=== PATIENT | female | born 1990 | race Caucasian/White ===

== ENCOUNTER 2016-03-03 16:41 | Emergency (ER) | payer OTHER ==
--- NOTE | 2016-03-03 20:29 | ED ORDER SUMMARY ---
..... Patient: DANIELLE CERVANTES OrderSheet [facility] VisitID: [id number] [place] [address] 25y, F Registration Date/Time: 03/03/2016 ORDER SHEET Weight: 61.2 kg Allergies: No Known Drug Allergy GENERAL ORDERS: CBC w Diff Urgent (17:03/03/2016 Rajeev Montenegro) (Ack 17:32 LTapper) (17:46 LTapper) CMP Urgent (:03/03/2016 Rajeev Montenegro) (Ack 17:32 LTapper) (17:46 LTapper) UA-Culture if indicated Urgent (:03/03/2016 Rajeev Montenegro) (Ack 17:32 LTapper) (17:46 LTapper) MEDICATION ORDERS: IV FLUIDS: IV NS : initial bolus none -, then 1000 mL/hr for X1 (NOW) (:03/03/2016 Rajeev Montenegro) (17:37 [facility]) ORDER SHEET NOTES: [Electronically signed by Husam Lopez Dr. (19:03 03/03/2016)] [Electronically signed by Saranya Stevens (20:51 03/03/2016)] [Electronically locked/signed by Saranya Stevens (20:51 03/03/2016)]
--- NOTE | 2016-03-03 20:29 | ED NURSING NOTES ---
Clinical Report - Nurses [facility] [address] [place] [address] 03/03/2016 16:43 Patient: DANIELLE CERVANTES TRIAGE Triage time 1650. Acuity: LEVEL 3. Chief Complaint: NEAR-SYNCOPE. Alert. No acute distress. --17:03 Saranya Stevens 16:59 03/03/16. BP: 112/71. HR: 72. RR: 20. O2 saturation: 100%. Temp: 98.4 F. Pain level now 0/10. --17:03 Saranya Stevens. Weight: 61.2 kg. Height/Length: 62 inches. BMI: 24.7. --16:57 Saranya Stevens. Medications Vitamins Oral. --17: Saranya Stevens. Allergies No Known Drug Allergy. --17:01 Saranya Stevens. History Arrived by private vehicle. Historian: patient. Accompanied by daughter. This started today. ( Pt is and today has been having contractions lasting 5 minutes, every hour, and then at 1400 felt like she was going to pass out, was able to s it down). PAST MEDICAL HX: Currently : EDC: July 28. SOCIAL HX: Never smoker. --17:03 Saranya Stevens. PROBLEMS: Murmur, Heart. --17:01 Saranya Stevens. Interventions To treatment room. --17:03 Saranya Stevens. PHYSICAL ASSESSMENT Ambulatory to room. Patient gowned. GENERAL / NEURO / PSYCH: Oriented X 4. Appears in no acute distress. Alert. Speech within normal limits. HEENT: No facial asymmetry noted. Pupils equal, round and reactive to light. RESPIRATORY: Breath sounds within normal limits. Respirations not labored. CVS: Normal sinus rhythm noted. Capillary refill less than 2 seconds. GI / : Abdomen soft and nontender. SKIN: Skin is warm and dry. --17:03 Saranya Stevens ( heart tones left under umbilicus at 140- per doppler). --17:11 Saranya Stevens. NURSING PROGRESS NOTES 17:36 03/03/2016 Site #1 started via IV in the right antecubital space with an 22g angiocath, with aseptic technique and good blood return; one attempt. Blood drawn: rainbow set. Labeled in the presence of the patient and sent to the lab. Saline lock flushed with 10 mL saline. --17:36 Saranya Stevens 17:37 03/03/2016 Started bag #1 1000 mL IV Fluids IV NS (Saline); bolus of 1000 mL wide open via site #1. Allergies verified and confirmed 5 rights. IV patency established. IV site checked: no pain, redness, or swelling. IV flushed thoroughly pre- and post-medication administration. --17:37 Saranya Stevens The patient reports no complaints and she is calm and resting quietly. Overall patient status is the same- she states feels better. --18:47 Saranya Stevens 18:46 03/03/16. BP: 98/51. HR: 65. RR: 16. O2 saturation: 100%. Pain level now 0/10. --18:47 Saranya Stevens. DISPOSITION / DISCHARGE 20:51 03/03/2016 Site #1 removed upon discharge. Pressure dressing applied. --20:51 Saranya Stevens 20:51 03/03/2016 IV Fluids IV NS Discontinued: bag #1 completed upon discharge. Total amount infused: 1000 mL. IV patency established. IV site checked: no pain, redness, or swelling. IV flushed thoroughly. --20:51 Saranya Stevens Departure time: 2034. Condition at departure: improved and stable. No learning barriers present. Discharge instructions provided and reviewed with the patient and spouse. Reviewed medication(s). Patient and spouse verbalized understanding. Written instructions provided in Danish. The patient was discharged by the physician. She was discharged home and accompanied by spouse. She left the Emergency Department ambulatory and via private vehicle. Spouse driving. --20:51 Saranya Stevens 20:50 03/03/16. BP: 106/53. HR: 78. RR: 16. O2 saturation: 98%. --20:51 Saranya Stevens. Locked/Released at 03/03/2016 20:51 by Saranya Stevens,
--- NOTE | 2016-03-03 20:29 | ED CLINICAL REPORT ---
Clinical Report - Physicians/Mid Levels [facility] [address] [place] [address] 03/03/2016 16:43 Patient: DANIELLE CERVANTES Time Seen: 16:49; initial patient contact. Arrived- By private vehicle. Historian- patient. HISTORY OF PRESENT ILLNESS The patient has recovered. Chief Complaint: NEAR-SYNCOPE. This occurred today. Event was not witnessed. At time of event, she was standing. The patient felt faint. No loss of consciousness, seizure activity or incontinence. Did not collapse. The patient had preceding symptoms of light-headedness, dim vision and warmth. No preceding symptoms of nausea, chest pain or abdominal pain. Currently she has no symptoms. No injuries noted. Similar symptoms previously: None. Recent medical care: Not recently seen/assessed. REVIEW OF SYSTEMS No headache, weakness, abdominal pain or numbness. She has had dizziness. All systems otherwise negative, except as recorded above. PAST HISTORY Lung disease. ( Heart Murmur(benign w/ 2 nl echos) Currently : EDC: July 28.). Surgeries: No history of previous surgery. Additional Surgeries: no known surgeries. Medications: Vitamins Oral. Allergies: No Known Drug Allergy. SOCIAL HISTORY Never smoker. No alcohol use or drug use. ADDITIONAL NOTES The nursing notes have been reviewed with agreement regarding the chief complaint, PMH and patient medications and allergies. PHYSICAL EXAM Vital Signs: 03/03/2016 16:59 BP: 112/71. HR: 72. RR: 20. O2 saturation: 100%. Temp: 98.4 F. Have been reviewed as normal. Appearance: Alert. No acute distress. ENT: Normal ENT inspection. Moist mucous membranes. CVS: Normal heart rate and rhythm. 2/6 brief systolic murmur located at the apex. Respiratory: No respiratory distress. Breath sounds normal. Abdomen: Soft and nontender. Nontender gravid uterus palpable to umbilicus (No contractions noted on multiple exams.). Size consistent with dates. Normal heart tones. movement noted. No organomegaly. Skin: Skin warm and dry. Normal skin color. No rash. Extremities: No calf tenderness. No lower extremity edema. Neuro: Alert. Oriented X 3. Mood/affect normal. Speech normal. LABS, X-RAYS, AND EKG Laboratory Tests: UA-Culture if indicated: (YECENIA: 03/03/2016 17:30) ( MsgRcvd 03/03/2016 17:51) Final results Test Result Flag Units (Reference) URINE COLOR COLORLESS URINE APPEARANCE CLEAR URINE GLUCOSE NEGATIVE (NEGATIVE) URINE BILIRUBIN NEGATIVE (NEGATIVE) URINE KETONE NEGATIVE (NEGATIVE) URINE SPECIFIC GRAVITY 1.015 (1.010-1.030) URINE PH 7.0 (5.0-8.0) URINE PROTEIN NEGATIVE (NEGATIVE) URINE UROBILINOGEN 0.2 EU/dL (0.2-1.0) URINE NITRITE NEGATIVE (NEGATIVE) URINE BLOOD NEGATIVE (NEGATIVE) URINE LEUK ESTERASE NEGATIVE (NEGATIVE) URINE RBC NONE SEEN rbc/hpf (0-1) URINE WBC NONE SEEN wbc/hpf (0-1) URINE EPITHELIAL CELLS NONE SEEN EPI/hpf (0-5) URINE BACTERIA NONE SEEN (NONE SEEN) URINE COMMENT CULT NOT INDICATED URINE CULTURES ARE SET-UP BASED ON THE FOLLOWING CRITERIA:POSITIVE NITRITEPOSITIVE LEUKOCYTE ESTERASEGREATER THAN 10 WHITE BLOOD CELLSMODERATE (2+) OR GREATER BACTERIA CBC w Diff: (YECENIA: 03/03/2016 17:30) ( MsgRcvd 03/03/2016 17:50) Final results Test Result Flag Units (Reference) WHITE BLOOD COUNT 8.9 K/uL (4.5-11.5) RED BLOOD COUNT 3.37 L M/uL (4.00-5.20) HEMOGLOBIN 10.8 L gm/dL (12.0-16.0) HEMATOCRIT 32.4 L % (36.0-46.0) MEAN CELL VOLUME 96 fL (80-100) MEAN CORPUSCULAR HGB 32 pg (26-34) MEAN CORPUSCULAR HGB CONC 33 g/dL (31-37) RED CELL DISTRIBUTION WIDTH 12.8 % (11.6-14.8) PLATELET COUNT 257 K/uL (150-400) NEUTROPHIL % 73.5 % (50-75) LYMPH % 17.4 L % (25-40) MONO % 7.6 % (3-14) EOSINOPHIL % 1.2 % (0-4) BASOPHIL % 0.3 % (0-2) CMP: (YECENIA: 03/03/2016 17:30) ( MsgRcvd 03/03/2016 17:56) Final results Test Result Flag Units (Reference) GLUCOSE 77 mg/dL (70-110) BUN 8 mg/dL (7-18) CREATININE 0.6 mg/dL (0.6-1.3) Estimated GFR >60 mL/min Estimated GFR- >60 mL/min Note: Persistent reduction over 3 months in eGFR<60 mL/min/1.73 m2 defines CKD. Patients with eGFR values>=60 mL/min/1.73 m2 may also have CKD if evidence ofpersistent proteinuria. Additional information may be foundat www.kidney.org. SODIUM 138 mmol/L (136-145) POTASSIUM 3.5 mmol/L (3.5-5.1) CHLORIDE 103 mmol/L (98-107) CARBON DIOXIDE 28 mmol/L (21-32) CALCIUM 8.3 L mg/dL (8.5-10.1) TOTAL PROTEIN 7.2 g/dL (6.4-8.2) ALBUMIN 3.1 L g/dL (3.3-5.0) BILIRUBIN, TOTAL 0.4 mg/dL (0.0-1.0) ALKALINE PHOSPHATASE 44 L U/L (46-116) AST (SGOT) 32 U/L (15-37) ALT (SGPT) 53 U/L (12-78) . CLINICAL IMPRESSION Vasovagal syncope. An EKG was not performed because a benign, noncardiac etiology was evident without doing an EKG. Second trimester intrauterine . Mild chronic anemia. INSTRUCTIONS Drink plenty of fluids. Your Current Medications: CONTINUE TAKING THE FOLLOWING MEDICATIONS: Vitamins Oral. Prescription Medications: vitamins Niferex-PN Forte Tablets: Take 1 orally every day. Dispense thirty (30). No refils. Substitution is permissible. Follow-up: Screening today revealed the patient's blood pressure to be in the normal range. Follow-up with: Paul Fallon MD, [facility], , [facility], [address] [place] [address] Follow up in about three days. Call for an appointment. (Electronically signed by Husam Lopez Dr. 03/03/2016 19:03)
--- NOTE | 2016-03-03 20:29 | ED ORDER SUMMARY ---
..... Patient: DANIELLE CERVANTES OrderSheet [facility] VisitID: [id number] [place] [address] 25y, F Registration Date/Time: 03/03/2016 ORDER SHEET Weight: 61.2 kg Allergies: No Known Drug Allergy GENERAL ORDERS: CBC w Diff Urgent (17:03/03/2016 Rajeev Montenegro) (Ack 17:32 LTapper) (17:46 LTapper) CMP Urgent (:03/03/2016 Rajeev Montenegro) (Ack 17:32 LTapper) (17:46 LTapper) UA-Culture if indicated Urgent (:03/03/2016 Rajeev Montenegro) (Ack 17:32 LTapper) (17:46 LTapper) MEDICATION ORDERS: IV FLUIDS: IV NS : initial bolus none -, then 1000 mL/hr for X1 (NOW) (:03/03/2016 Rajeev Montenegro) (17:37 [facility]) ORDER SHEET NOTES: [Electronically signed by Husam Lopez Dr. (19:03 03/03/2016)] [Electronically signed by Saranya Stevens (20:51 03/03/2016)] [Electronically locked/signed by Saranya Stevens (20:51 03/03/2016)]
--- NOTE | 2016-03-03 20:52 | ED MAR SUMMARY ---
..... Medication Administration Record [facility] [address] [place] [address] Patient: DANIELLE CERVANTES Visit ID: [id number] 25y, F Weight: 61.2 kg Height/Length: 62 in BMI: 24.7 ALLERGIES: No Known Drug Allergy Start 17:37 03/03/2016 Saranya Stevens,, Stop 20:51 03/03/2016 Saranya Stevens, Medication Administered: IV NS (SALINE), Dose: IV Fluids, Bolus: 1000 mL wide open, Dispensed: 1000 mL bag, Site: #1 right AC. Medication Ordered: IV NS : initial bolus none -, then 1000 mL/hr for X1 (NOW).
--- NOTE | 2016-03-03 20:52 | ED MED RECONCILIATION SUMMARY ---
Patient: DANIELLE CERVANTES Medication Reconciliation Report [facility] VisitID: [id number] [address] [place] [address] 25y, F Registration Date/Time: 03/03/2016 Weight: 61.2 kg Height/Length: 62 in. BMI: 24.7 ALLERGIES: No Known Drug Allergy The patient's Home Medications are listed below: CONTINUE TAKING THE FOLLOWING MEDICATIONS: Vitamins Oral The source(s) of the original Home Medication information: Not obtained. The following Medications were given to the patient in the Emergency Department: IV NS IV Fluids bolus 1000 mL wide open, administered: 03/03/2016 5:37:00 PM The following Medications were prescribed to the patient: vitamins Niferex-PN Forte Tablets: Take 1 orally every day. Dispense thirty (30). No refils. Substitution is permissible. -- Husam Lopez Dr.
--- NOTE | 2016-03-03 20:52 | ED MAR SUMMARY ---
..... Medication Administration Record [facility] [address] [place] [address] Patient: DANIELLE CERVANTES Visit ID: [id number] 25y, F Weight: 61.2 kg Height/Length: 62 in BMI: 24.7 ALLERGIES: No Known Drug Allergy Start 17:37 03/03/2016 Saranya Stevens,, Stop 20:51 03/03/2016 Saranya Stevens, Medication Administered: IV NS (SALINE), Dose: IV Fluids, Bolus: 1000 mL wide open, Dispensed: 1000 mL bag, Site: #1 right AC. Medication Ordered: IV NS : initial bolus none -, then 1000 mL/hr for X1 (NOW).
--- NOTE | 2016-03-03 20:52 | ED DISCHARGE INSTRUCTIONS ---
Patient: DANIELLE CERVANTES General Instructions [facility] VisitID: [id number] [place] [address] 25y, F Registration Date/Time: 03/03/2016 Vasovagal syncope. An EKG was not performed because a benign, noncardiac etiology was evident without doing an EKG. Second trimester intrauterine . Mild chronic anemia. INSTRUCTIONS Drink plenty of fluids. Your Current Medications: CONTINUE TAKING THE FOLLOWING MEDICATIONS: Vitamins Oral. Prescription Medications: vitamins Niferex-PN Forte Tablets: Take 1 orally every day. Dispense thirty (30). No refils. Substitution is permissible. Follow-up: Screening today revealed the patient's blood pressure to be in the normal range. Follow-up with: Paul Fallon MD, [facility], , [facility], [address] [place] [address] Follow up in about three days. Call for an appointment. ADDITIONAL INFORMATION Fainting:Vagal Reaction Fainting (syncope) is a temporary loss of consciousness ("passing out"). It occurs when blood flow to the brain is reduced. Your doctor believes that your episode was due to a vagal reaction. This condition is not a sign of serious disease. A vagal reaction is a reflex response that causes the pulse to slow down or the blood vessels to dilate. This causes the blood pressure to fall, reducing the blood flow to the brain if you are standing or sitting. That results in dizziness, near-fainting or fainting. Lying down usually stops the reaction within 60 seconds. This reflex response can occur during sudden fear, severe pain, emotional stress, overexertion, overheating, hunger, nausea or vomiting, prolonged standing or standing up after sitting or lying for a long time. Home Care: 1) Rest today and resume your normal activities as soon as you are feeling back to normal. 2) If you become light-headed or dizzy, lie down immediately or sit with your head lowered between your knees. Follow Up with your doctor as instructed. Get Prompt Medical Attention if any of the following occur: -- Another fainting spell occurs, which is not explained by the common causes listed above -- Chest, arm, neck, jaw, back or abdominal pain -- Shortness of breath -- Severe headache or seizure -- Blood in vomit, stools (black or red color) -- Unexpected vaginal bleeding -- Palpitations (very rapid or very slow or irregular heart beat) -- Signs of stroke: Weakness of an arm or leg or one side of the face Difficulty with speech or vision Extreme drowsiness, confusion, dizziness or fainting Anemia [Type Not Specified, Adult] Red blood cells carry oxygen to the tissues of the body. Anemia is a condition where the size or number of red blood cells in the body is reduced. Iron is needed to make red blood cells. The most common cause of anemia is iron deficiency. This may be due to: i) Blood loss (heavy menstrual periods or bleeding from the stomach or intestines); or, ii) Not eating enough iron-containing foods. Other causes of anemia include certain vitamin deficiencies, chronic kidney disease or certain other chronic illnesses. Anemia causes a feeling of being tired and run down. When anemia becomes severe, the skin becomes pale and there is shortness of breath with exertion. Headaches, dizziness, leg cramps with exertion, drowsiness and fatigue are other common symptoms. Home Care: If you are having symptoms of anemia listed above: -- Do not overexert yourself. -- Talk to your doctor before flying on an airplane or traveling to high altitudes. Follow Up with your doctor as advised by our staff. Additional blood testing may be required to determine the exact cause of your anemia. If testing was done on this visit, it may take several days to get all of the results. You may call this facility or follow up with your own doctor to get the results. Get Prompt Medical Attention if any of the following occur: -- Shortness of breath or chest pain -- Worsening of dizziness, fainting -- Vomiting blood or passing red or black-colored stool Your exam today shows that you are . During , it is normal to develop tender swollen breasts, frequent urination and mild vaginal discharge. During the first three months, nausea is common. Guidelines For A Healthy : To ensure that your baby is born healthy there are certain things that you can do: When you feel tired, you should REST. This is especially true in the later months of . Your body needs more FLUIDS than you may be used to: You should drink 8-10 glasses of juice, milk or water. Eat well-balanced MEALS at regular intervals to supply your body with enough protein. You can expect a total weight gain of about 30 pounds during the . Do not try to diet or lose weight while you are . Because of the extra nutritional needs during , take one VITAMIN daily. Do not take any other MEDICINE during your (prescribed or [id number]) unless your doctor specifically recommends this. Many drugs can have harmful effects on the growing baby. If NAUSEA or VOMITING become a problem, avoid greasy and fried foods. Eat several smaller meals throughout the day rather than three large meals. If you SMOKE, you must stop. The nicotine you breathe in goes right to the baby. Stay away from ALCOHOL, even in moderate amounts. Daily drinking will harm your baby and can cause permanent brain damage. RECREATIONAL DRUGS are harmful, especially cocaine, crack, and heroin. Marijuana should also be avoided. If you were using recreational drugs or prescribed medicine when you found out that you were , talk to your doctor about possible effects on the fetus. Follow Up: Call to arrange for care. This can be provided by your family doctor, an wreath and garland maker hand ( specialist) or a primary care clinic. Get Prompt Medical Attention if any of the following occur: Vaginal bleeding Moderate or severe abdominal or back pain Excessive vomiting, unable to keep any fluids down for six hours Burning with urination Headache, dizziness or rapid weight gain You have been given the following additional information: Syncope, Vasovagal Anemia, Type Not Specified (Adult) , New Dx (Electronically signed by Husam Lopez Dr. 03/03/2016 19:03)
--- NOTE | 2016-03-03 20:52 | ED MED RECONCILIATION SUMMARY ---
Patient: DANIELLE CERVANTES Medication Reconciliation Report [facility] VisitID: [id number] [address] [place] [address] 25y, F Registration Date/Time: 03/03/2016 Weight: 61.2 kg Height/Length: 62 in. BMI: 24.7 ALLERGIES: No Known Drug Allergy The patient's Home Medications are listed below: CONTINUE TAKING THE FOLLOWING MEDICATIONS: Vitamins Oral The source(s) of the original Home Medication information: Not obtained. The following Medications were given to the patient in the Emergency Department: IV NS IV Fluids bolus 1000 mL wide open, administered: 03/03/2016 5:37:00 PM The following Medications were prescribed to the patient: vitamins Niferex-PN Forte Tablets: Take 1 orally every day. Dispense thirty (30). No refils. Substitution is permissible. -- Husam Lopez Dr.
--- NOTE | 2016-03-03 20:52 | ED DISCHARGE INSTRUCTIONS ---
Patient: DANIELLE CERVANTES General Instructions [facility] VisitID: [id number] [place] [address] 25y, F Registration Date/Time: 03/03/2016 Vasovagal syncope. An EKG was not performed because a benign, noncardiac etiology was evident without doing an EKG. Second trimester intrauterine . Mild chronic anemia. INSTRUCTIONS Drink plenty of fluids. Your Current Medications: CONTINUE TAKING THE FOLLOWING MEDICATIONS: Vitamins Oral. Prescription Medications: vitamins Niferex-PN Forte Tablets: Take 1 orally every day. Dispense thirty (30). No refils. Substitution is permissible. Follow-up: Screening today revealed the patient's blood pressure to be in the normal range. Follow-up with: Paul Fallon MD, [facility], , [facility], [address] [place] [address] Follow up in about three days. Call for an appointment. ADDITIONAL INFORMATION Fainting:Vagal Reaction Fainting (syncope) is a temporary loss of consciousness ("passing out"). It occurs when blood flow to the brain is reduced. Your doctor believes that your episode was due to a vagal reaction. This condition is not a sign of serious disease. A vagal reaction is a reflex response that causes the pulse to slow down or the blood vessels to dilate. This causes the blood pressure to fall, reducing the blood flow to the brain if you are standing or sitting. That results in dizziness, near-fainting or fainting. Lying down usually stops the reaction within 60 seconds. This reflex response can occur during sudden fear, severe pain, emotional stress, overexertion, overheating, hunger, nausea or vomiting, prolonged standing or standing up after sitting or lying for a long time. Home Care: 1) Rest today and resume your normal activities as soon as you are feeling back to normal. 2) If you become light-headed or dizzy, lie down immediately or sit with your head lowered between your knees. Follow Up with your doctor as instructed. Get Prompt Medical Attention if any of the following occur: -- Another fainting spell occurs, which is not explained by the common causes listed above -- Chest, arm, neck, jaw, back or abdominal pain -- Shortness of breath -- Severe headache or seizure -- Blood in vomit, stools (black or red color) -- Unexpected vaginal bleeding -- Palpitations (very rapid or very slow or irregular heart beat) -- Signs of stroke: Weakness of an arm or leg or one side of the face Difficulty with speech or vision Extreme drowsiness, confusion, dizziness or fainting Anemia [Type Not Specified, Adult] Red blood cells carry oxygen to the tissues of the body. Anemia is a condition where the size or number of red blood cells in the body is reduced. Iron is needed to make red blood cells. The most common cause of anemia is iron deficiency. This may be due to: i) Blood loss (heavy menstrual periods or bleeding from the stomach or intestines); or, ii) Not eating enough iron-containing foods. Other causes of anemia include certain vitamin deficiencies, chronic kidney disease or certain other chronic illnesses. Anemia causes a feeling of being tired and run down. When anemia becomes severe, the skin becomes pale and there is shortness of breath with exertion. Headaches, dizziness, leg cramps with exertion, drowsiness and fatigue are other common symptoms. Home Care: If you are having symptoms of anemia listed above: -- Do not overexert yourself. -- Talk to your doctor before flying on an airplane or traveling to high altitudes. Follow Up with your doctor as advised by our staff. Additional blood testing may be required to determine the exact cause of your anemia. If testing was done on this visit, it may take several days to get all of the results. You may call this facility or follow up with your own doctor to get the results. Get Prompt Medical Attention if any of the following occur: -- Shortness of breath or chest pain -- Worsening of dizziness, fainting -- Vomiting blood or passing red or black-colored stool Your exam today shows that you are . During , it is normal to develop tender swollen breasts, frequent urination and mild vaginal discharge. During the first three months, nausea is common. Guidelines For A Healthy : To ensure that your baby is born healthy there are certain things that you can do: When you feel tired, you should REST. This is especially true in the later months of . Your body needs more FLUIDS than you may be used to: You should drink 8-10 glasses of juice, milk or water. Eat well-balanced MEALS at regular intervals to supply your body with enough protein. You can expect a total weight gain of about 30 pounds during the . Do not try to diet or lose weight while you are . Because of the extra nutritional needs during , take one VITAMIN daily. Do not take any other MEDICINE during your (prescribed or gngk-gjf-fvdajmp) unless your doctor specifically recommends this. Many drugs can have harmful effects on the growing baby. If NAUSEA or VOMITING become a problem, avoid greasy and fried foods. Eat several smaller meals throughout the day rather than three large meals. If you SMOKE, you must stop. The nicotine you breathe in goes right to the baby. Stay away from ALCOHOL, even in moderate amounts. Daily drinking will harm your baby and can cause permanent brain damage. RECREATIONAL DRUGS are harmful, especially cocaine, crack, and heroin. Marijuana should also be avoided. If you were using recreational drugs or prescribed medicine when you found out that you were , talk to your doctor about possible effects on the fetus. Follow Up: Call to arrange for care. This can be provided by your family doctor, an pool hall inspector ( specialist) or a primary care clinic. Get Prompt Medical Attention if any of the following occur: Vaginal bleeding Moderate or severe abdominal or back pain Excessive vomiting, unable to keep any fluids down for six hours Burning with urination Headache, dizziness or rapid weight gain You have been given the following additional information: Syncope, Vasovagal Anemia, Type Not Specified (Adult) , New Dx (Electronically signed by Husam Lopez Dr. 03/03/2016 19:03)
== END 2016-03-03 20:35 | disposition home or self-care (01) ==
LOC: ED SRH 16:41
DX: O26.892 Other specified pregnancy related conditions, second trimester (principal); R55 Syncope and collapse; D64.9 Anemia, unspecified; Z3A.18 18 weeks gestation of pregnancy
CPT/HCPCS: 90004; 90100; 95059

== ENCOUNTER 2016-03-15 07:53 | Outpatient (CLI) | payer OTHER ==
--- NOTE | 2016-03-15 10:22 | DIAGNOSTIC IMAGING REPORT ---
PROCEDURE: US OB DETAILED ANATOMIC INDICATION: ANATOMY TECHNIQUE: Joel scale, color, and spectral Doppler images of the second trimester gravid uterus were obtained. COMPARISON: None. FINDINGS: Single intrauterine with vertex presentation, posterior placenta without previa and heart rate 133 bpm. Amniotic fluid is unremarkable. Normal closed cervix measures 5 cm. The anatomic survey, including the intracranial anatomy, facial structures, nuchal region, spine, ngdk-wvptivi-bsqfa view, outflow tracts, chest and diaphragm, stomach and abdomen, three-vessel cord and cord insertion, bladder and pelvis, kidneys and extremities, is within normal limits. BPD 4.7 cm, 20 weeks; head circumference 18 cm, 20 weeks 3 days; abdominal circumference 14.8 cm, 20 weeks; femur length 3.6 cm, 21 weeks 2 days; composite age 20 weeks 3 days. IVETT 07/30/2016. IMPRESSION: 1. Single live intrauterine , vertex, 20 weeks 3 days 2. IVETT 07/30/2016 3. anatomic survey within normal limits
--- NOTE | 2016-03-15 10:22 | DIAGNOSTIC IMAGING REPORT ---
PROCEDURE: US OB DETAILED ANATOMIC INDICATION: ANATOMY TECHNIQUE: Joel scale, color, and spectral Doppler images of the second trimester gravid uterus were obtained. COMPARISON: None. FINDINGS: Single intrauterine with vertex presentation, posterior placenta without previa and heart rate 133 bpm. Amniotic fluid is unremarkable. Normal closed cervix measures 5 cm. The anatomic survey, including the intracranial anatomy, facial structures, nuchal region, spine, lnis-zmzmscf-tknip view, outflow tracts, chest and diaphragm, stomach and abdomen, three-vessel cord and cord insertion, bladder and pelvis, kidneys and extremities, is within normal limits. BPD 4.7 cm, 20 weeks; head circumference 18 cm, 20 weeks 3 days; abdominal circumference 14.8 cm, 20 weeks; femur length 3.6 cm, 21 weeks 2 days; composite age 20 weeks 3 days. IVETT 07/30/2016. IMPRESSION: 1. Single live intrauterine , vertex, 20 weeks 3 days 2. IVETT 07/30/2016 3. anatomic survey within normal limits
== END 2016-03-15 23:00 ==
LOC: US SRH 07:53
DX: Z34.92 Encounter for supervision of normal pregnancy, unspecified, second trimester (principal); Z3A.20 20 weeks gestation of pregnancy

== ENCOUNTER 2016-03-29 04:19 | Emergency (ER) | payer OTHER ==
--- NOTE | 2016-03-29 05:08 | ED NURSING NOTES ---
Clinical Report - Nurses [facility] [address] [place] [address] 03/29/2016 4:18 Patient: DANIELLE CERVANTES TRIAGE Triage time 04:Mar 29 2016. Acuity: LEVEL 3. Chief Complaint: HEADACHE, COUGH, NAUSEA and VOMITING. SEPSIS SCREEN: Sepsis Screen. Negative (no infection suspected/documented). --04:26 Saranya Washington R.N. 04:22 03/29/16. BP: 118/59. HR: 88. RR: 16. O2 saturation: 100%. Temp: 97.9 F. Pain level now: 05/22. --04:26 Saranya Washington R.N. Weight: 63.5 kg stated. Height/Length: 62 inches Per Patient. BMI: 25.6. --04:21 Saranya Washington R.N. Medications Vitamins Oral. --04:23 Saranya Washington R.N. Medication/allergy information source: the patient. --04:26 Saranya Washington R.N. Allergies No Known Drug Allergy. --04:23 Saranya Washington R.N. History Arrived by private vehicle. Historian: patient. Unaccompanied. Onset. (4 days). ( runny nose for 4 days, cough since yesterday, vomiting since last night (2 times)). She has had a cough. 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 PAST MEDICAL HX: Currently : EDC: 07/28. In 2nd trimester. Has had care by [facility] executive director. G 2. P 1. SOCIAL HX: Never smoker. No alcohol use or drug use. No infectious disease exposure. ABUSE ASSESSMENT: No report of abuse. FALL RISK ASSESSMENT: Fall risk assessment completed. No fall risk identified. NUTRITIONAL RISK ASSESSMENT: The nutritional risk assessment revealed no deficiencies. FUNCTIONAL ASSESSMENT: Functional assessment: no impairments noted. LEARNING NEEDS ASSESSMENT: The learning needs assessment revealed no barriers. SKIN INTEGRITY ASSESSMENT: Skin integrity risk assessment completed. No skin integrity risk identified. --04:26 Saranya Washington R.N. PROBLEMS: Intrauterine . Anemia. . --04:24 Saranya Washington R.N. ADDITIONAL SURGERIES: no known surgeries. Interventions ID band on patient. --04:26 Saranya Washington R.N. PHYSICAL ASSESSMENT 04:36 03/29/16. GENERAL / NEURO / PSYCH: Alert. Oriented X 4. HEENT: Pupils equal, round and reactive to light. No facial asymmetry noted. Sinus tenderness present. No pharyngeal erythema or active bleeding from nose. Runny nose. Mucous membranes are pink. RESPIRATORY: Breath sounds within normal limits. CVS: Pulses within normal limits. GI / : ( gravid uterus). Abdomen soft. SKIN: Skin intact. Skin is warm and dry. Normal skin turgor. --04:36 Saranya Washington R.N. NURSING PROGRESS NOTES 04:22 03/29/16. The initial plan of care for this patient includes an assessment with efforts to address impairment of the respiratory system. This plan of care was discussed with the patient. Patient gowned. Reassurance given. Patient identifiers checked. Call light placed in reach. Side rails up x 1. Bed placed in lowest position. Brakes of bed on. Patient ready for evaluation. --04:35 Saranya Washington R.N. 04:36 03/29/16. ( heart rate obtained at 142 in RLQ, movement observed). --04:36 Saranya Washington R.N. DISPOSITION / DISCHARGE 05:15 03/29/16. Departure time: 05:Mar 29 2016. Condition at departure: unchanged and stable. The goals identified in the patient's plan of care were met. No learning barriers present. Reviewed medication(s) side effects, precautions, dosing and course information. Prescription(s) given to the patient. Patient verbalized understanding. Written instructions provided in Armenian. The patient was discharged home and unaccompanied at time of discharge. She left the Emergency Department ambulatory and via private vehicle. Patient driving. --05:15 Saranya Washington R.N. 04:22 03/29/16. BP: 118/59. HR: 88. RR: 16. O2 saturation: 100%. Temp: 97.9 F. Pain level now: 05/22. --05:15 Saranya Washington R.N. Locked/Released at 03/29/2016 5:16 by Saranya Washington R.N.
--- NOTE | 2016-03-29 05:08 | ED NURSING NOTES ---
Clinical Report - Nurses [facility] [address] [place] [address] 03/29/2016 4:18 Patient: DANIELLE CERVANTES TRIAGE Triage time 04:Mar 29 2016. Acuity: LEVEL 3. Chief Complaint: HEADACHE, COUGH, NAUSEA and VOMITING. SEPSIS SCREEN: Sepsis Screen. Negative (no infection suspected/documented). --04:26 Saranya Washington R.N. 04:22 03/29/16. BP: 118/59. HR: 88. RR: 16. O2 saturation: 100%. Temp: 97.9 F. Pain level now: 05/22. --04:26 Saranya Washington R.N. Weight: 63.5 kg stated. Height/Length: 62 inches Per Patient. BMI: 25.6. --04:21 Saranya Washington R.N. Medications Vitamins Oral. --04:23 Saranya Washington R.N. Medication/allergy information source: the patient. --04:26 Saranya Washington R.N. Allergies No Known Drug Allergy. --04:23 Saranya Washington R.N. History Arrived by private vehicle. Historian: patient. Unaccompanied. Onset. (4 days). ( runny nose for 4 days, cough since yesterday, vomiting since last night (2 times)). She has had a cough. 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 PAST MEDICAL HX: Currently : EDC: 07/28. In 2nd trimester. Has had care by special education professional. G 2. P 1. SOCIAL HX: Never smoker. No alcohol use or drug use. No infectious disease exposure. ABUSE ASSESSMENT: No report of abuse. FALL RISK ASSESSMENT: Fall risk assessment completed. No fall risk identified. NUTRITIONAL RISK ASSESSMENT: The nutritional risk assessment revealed no deficiencies. FUNCTIONAL ASSESSMENT: Functional assessment: no impairments noted. LEARNING NEEDS ASSESSMENT: The learning needs assessment revealed no barriers. SKIN INTEGRITY ASSESSMENT: Skin integrity risk assessment completed. No skin integrity risk identified. --04:26 Saranya Washington R.N. PROBLEMS: Intrauterine . Anemia. . --04:24 Saranya Washington R.N. ADDITIONAL SURGERIES: no known surgeries. Interventions ID band on patient. --04:26 Saranya Washington R.N. PHYSICAL ASSESSMENT 04:36 03/29/16. GENERAL / NEURO / PSYCH: Alert. Oriented X 4. HEENT: Pupils equal, round and reactive to light. No facial asymmetry noted. Sinus tenderness present. No pharyngeal erythema or active bleeding from nose. Runny nose. Mucous membranes are pink. RESPIRATORY: Breath sounds within normal limits. CVS: Pulses within normal limits. GI / : ( gravid uterus). Abdomen soft. SKIN: Skin intact. Skin is warm and dry. Normal skin turgor. --04:36 Saranya Washington R.N. NURSING PROGRESS NOTES 04:22 03/29/16. The initial plan of care for this patient includes an assessment with efforts to address impairment of the respiratory system. This plan of care was discussed with the patient. Patient gowned. Reassurance given. Patient identifiers checked. Call light placed in reach. Side rails up x 1. Bed placed in lowest position. Brakes of bed on. Patient ready for evaluation. --04:35 Saranya Washington R.N. 04:36 03/29/16. ( heart rate obtained at 142 in RLQ, movement observed). --04:36 Saranya Washington R.N. DISPOSITION / DISCHARGE 05:15 03/29/16. Departure time: 05:Mar 29 2016. Condition at departure: unchanged and stable. The goals identified in the patient's plan of care were met. No learning barriers present. Reviewed medication(s) side effects, precautions, dosing and course information. Prescription(s) given to the patient. Patient verbalized understanding. Written instructions provided in Albanian. The patient was discharged home and unaccompanied at time of discharge. She left the Emergency Department ambulatory and via private vehicle. Patient driving. --05:15 Saranya Washington R.N. 04:22 03/29/16. BP: 118/59. HR: 88. RR: 16. O2 saturation: 100%. Temp: 97.9 F. Pain level now: 05/22. --05:15 Saranya Washington R.N. Locked/Released at 03/29/2016 5:16 by Saranya Washington R.N.
--- NOTE | 2016-03-29 05:08 | ED CLINICAL REPORT ---
Clinical Report - Physicians/Mid Levels [facility] [address] [place] [address] 03/29/2016 4:18 Patient: DANIELLE CERVANTES Time Seen: 04:24; initial patient contact. Arrived- By private vehicle. Historian- patient. HISTORY OF PRESENT ILLNESS Chief Complaint: COUGH. This started about 4 days ago and is still present. It was gradual in onset. The illness is described as mild. The patient has had a cough, nasal congestion, sinus pressure and a nasal discharge. No sputum production, difficulty breathing, chest discomfort or pain or fever. No chills, sore throat or sinus drainage. Additional history - The patient has had contact with a sick child. Similar symptoms previously: None. Recent medical care: Not recently seen/assessed. REVIEW OF SYSTEMS No headache, diarrhea or abdominal pain. She has had nausea and vomiting. All systems otherwise negative, except as recorded above. PAST HISTORY Intrauterine . Anemia. . ADDITIONAL SURGERIES: no known surgeries. Additional Surgeries: no known surgeries. Medications: Vitamins Oral. Allergies: No Known Drug Allergy. SOCIAL HISTORY Never smoker. No alcohol use or drug use. ADDITIONAL NOTES The nursing notes have been reviewed with agreement regarding the chief complaint, PMH and patient medications and allergies. PHYSICAL EXAM Vital Signs: 03/29/2016 04:22 BP: 118/59. HR: 88. RR: 16. O2 saturation: 100%. Temp: 97.9 F. Pain level now: 4/10. Have been reviewed as normal. Appearance: Alert. No acute distress. Head: Tenderness present to percussion/palpation of the sinuses. Eyes: Eyes normal inspection. ENT: Pharynx normal. Neck: No lymphadenopathy. CVS: Normal heart rate and rhythm. Heart sounds normal. Respiratory: No respiratory distress. Breath sounds normal. Abdomen: Soft and nontender. The bowel sounds are not abnormal. Skin: Normal skin color. No rash. Neuro: Oriented X 3. PROGRESS AND PROCEDURES Disposition: Discharged home in good condition. Condition: good. CLINICAL IMPRESSION Acute viral rhinitis and sinusitis. INSTRUCTIONS Do not work today, tomorrow. Drink plenty of fluids. Your Current Medications: CONTINUE TAKING THE FOLLOWING MEDICATIONS: Vitamins Oral. Prescription Medications: Fluticasone nasal spray: 2 sprays to each nostril daily for allergies or congestion. Dispense one (1) unit. No refills. Follow-up: Follow up with your doctor in about two days. Call for an appointment. Screening today revealed the patient's blood pressure to be in the normal range. (Electronically signed by Husam Lopez Dr. 03/29/2016 5:11)
--- NOTE | 2016-03-29 05:08 | ED CLINICAL REPORT ---
Clinical Report - Physicians/Mid Levels [facility] [address] [place] [address] 03/29/2016 4:18 Patient: DANIELLE CERVANTES Time Seen: 04:24; initial patient contact. Arrived- By private vehicle. Historian- patient. HISTORY OF PRESENT ILLNESS Chief Complaint: COUGH. This started about 4 days ago and is still present. It was gradual in onset. The illness is described as mild. The patient has had a cough, nasal congestion, sinus pressure and a nasal discharge. No sputum production, difficulty breathing, chest discomfort or pain or fever. No chills, sore throat or sinus drainage. Additional history - The patient has had contact with a sick child. Similar symptoms previously: None. Recent medical care: Not recently seen/assessed. REVIEW OF SYSTEMS No headache, diarrhea or abdominal pain. She has had nausea and vomiting. All systems otherwise negative, except as recorded above. PAST HISTORY Intrauterine . Anemia. . ADDITIONAL SURGERIES: no known surgeries. Additional Surgeries: no known surgeries. Medications: Vitamins Oral. Allergies: No Known Drug Allergy. SOCIAL HISTORY Never smoker. No alcohol use or drug use. ADDITIONAL NOTES The nursing notes have been reviewed with agreement regarding the chief complaint, PMH and patient medications and allergies. PHYSICAL EXAM Vital Signs: 03/29/2016 04:22 BP: 118/59. HR: 88. RR: 16. O2 saturation: 100%. Temp: 97.9 F. Pain level now: 4/10. Have been reviewed as normal. Appearance: Alert. No acute distress. Head: Tenderness present to percussion/palpation of the sinuses. Eyes: Eyes normal inspection. ENT: Pharynx normal. Neck: No lymphadenopathy. CVS: Normal heart rate and rhythm. Heart sounds normal. Respiratory: No respiratory distress. Breath sounds normal. Abdomen: Soft and nontender. The bowel sounds are not abnormal. Skin: Normal skin color. No rash. Neuro: Oriented X 3. PROGRESS AND PROCEDURES Disposition: Discharged home in good condition. Condition: good. CLINICAL IMPRESSION Acute viral rhinitis and sinusitis. INSTRUCTIONS Do not work today, tomorrow. Drink plenty of fluids. Your Current Medications: CONTINUE TAKING THE FOLLOWING MEDICATIONS: Vitamins Oral. Prescription Medications: Fluticasone nasal spray: 2 sprays to each nostril daily for allergies or congestion. Dispense one (1) unit. No refills. Follow-up: Follow up with your doctor in about two days. Call for an appointment. Screening today revealed the patient's blood pressure to be in the normal range. (Electronically signed by Husam Lopez Dr. 03/29/2016 5:11)
--- NOTE | 2016-03-29 05:16 | ED DISCHARGE INSTRUCTIONS ---
Patient: DANIELLE CERVANTES General Instructions [facility] VisitID: [id number] [place] [address] 25y, F Registration Date/Time: 03/29/2016 Acute viral rhinitis and sinusitis. INSTRUCTIONS Do not work today, tomorrow. Drink plenty of fluids. Your Current Medications: CONTINUE TAKING THE FOLLOWING MEDICATIONS: Vitamins Oral. Prescription Medications: Fluticasone nasal spray: 2 sprays to each nostril daily for allergies or congestion. Dispense one (1) unit. No refills. Follow-up: Follow up with your doctor in about two days. Call for an appointment. Screening today revealed the patient's blood pressure to be in the normal range. ADDITIONAL INFORMATION Viral Respiratory Illness [Adult] You have an Upper Respiratory Illness (URI) caused by a virus. This illness is contagious during the first few days. It is spread through the air by coughing and sneezing or by direct contact (touching the sick person and then touching your own eyes, nose or mouth). Most viral illnesses go away within 7-10 days with rest and simple home remedies. Sometimes, the illness may last for several weeks. Antibiotics will not kill a virus and are generally not prescribed for this condition. Home Care: 1) If symptoms are severe, rest at home for the first 2-3 days. When you resume activity, don't let yourself get too tired. 2) Avoid being exposed to cigarette smoke (yours or others). 3) Tylenol (acetaminophen) or ibuprofen (Advil, Motrin) will help fever, muscle aching and headache. (Persons under 18 with fever should not take aspirin since this may cause liver damage.) 4) Your appetite may be poor, so a light diet is fine. Avoid dehydration by drinking 6-8 glasses of fluids per day (water, soft drinks, juices, tea, soup). Extra fluids will help loosen secretions in the nose and lungs. 5) Fjho-eqv-zvtgahk cold medicines will not shorten the length of time youre sick, but they may be helpful for the following symptoms: cough (Robitussin DM); sore throat (Chloraseptic lozenges or spray); nasal and sinus congestion (Actifed, Sudafed, Chlortrimeton). Follow Up with your doctor or as advised if you dont improve over the next week. Get Prompt Medical Attention if any of the following occur: -- Cough with lots of colored sputum (mucus) or blood in your sputum -- Chest pain, shortness of breath, wheezing or have trouble breathing -- Severe headache; face, neck or ear pain -- Fever over 100.4 F (38.0 C) for more than three days -- You cant swallow due to throat pain Fluticasone Propionate Nasal spray, solution What is this medicine? FLUTICASONE (floo TIK a sone) is a corticosteroid. It helps decrease inflammation in your nose. This medicine is used to treat the symptoms of allergies like sneezing, itching, and runny or stuffy nose. How should I use this medicine? This medicine is for use in the nose. Follow the directions on your prescription label. This medicine works best if used regularly. Do not use more often than directed. Make sure that you are using your nasal spray correctly. Ask you doctor or health care provider if you have any questions. Talk to your space control agent regarding the use of this medicine in children. While this drug may be prescribed for children as young as 4 years old for selected conditions, precautions do apply. What side effects may I notice from receiving this medicine? Side effects that you should report to your doctor or health nurse healthcare manager as soon as possible: allergic reactions like skin rash, itching or hives, swelling of the face, lips, or tongue changes in vision flu-like symptoms white patches or sores in the mouth or nose Side effects that usually do not require medical attention (report to your doctor or health nurse healthcare manager if they continue or are bothersome): burning or irritation inside the nose or throat cough headache nosebleed unusual taste or smell What may interact with this medicine? ketoconazole metyrapone some medicines for HIV vaccines What if I miss a dose? If you miss a dose, use it as soon as you remember. If it is almost time for your next dose, use only that dose and continue with your regular schedule. Do not use double or extra doses. Where should I keep my medicine? Keep out of the reach of children. Store at room temperature between 15 and 30 degrees C (59 and 86 degrees F). Throw away any unused medicine after the expiration date. What should I tell my health care provider before I take this medicine? They need to know if you have any of these conditions: infection, like tuberculosis, herpes, or fungal infection recent surgery on nose or sinuses taking corticosteroid by mouth an unusual or allergic reaction to fluticasone, steroids, other medicines, foods, dyes, or preservatives or trying to get breast-feeding What should I watch for while using this medicine? Visit your doctor or health nurse healthcare manager for regular checks on your progress. Some symptoms may improve within 12 hours after starting use. Check with your doctor or health nurse healthcare manager if there is no improvement in your condition after 3 weeks of use. Do not come in contact with people who have chickenpox or the measles while you are taking this medicine. If you do, call your doctor right away. You have been given the following additional information: Uri, Viral, No Abx (Adult) Fluticasone Propionate Nasal spray, solution Do not work today, tomorrow. (Electronically signed by Husam Lopez Dr. 03/29/2016 5:11)
--- NOTE | 2016-03-29 05:16 | ED MAR SUMMARY ---
..... Medication Administration Record [facility] [address] [place], [place] [id number] Patient: DANIELLE CERVANTES Visit ID: [id number] 25y, F Weight: 63.5 kg Height/Length: 62 in BMI: 25.6 ALLERGIES: No Known Drug Allergy
--- NOTE | 2016-03-29 05:16 | ED MAR SUMMARY ---
..... Medication Administration Record [facility] [address] [place], [place] [id number] Patient: DANIELLE CERVANTES Visit ID: [id number] 25y, F Weight: 63.5 kg Height/Length: 62 in BMI: 25.6 ALLERGIES: No Known Drug Allergy
--- NOTE | 2016-03-29 05:16 | ED MED RECONCILIATION SUMMARY ---
Patient: DANIELLE CERVANTES Medication Reconciliation Report [facility] VisitID: [id number] [address] [place] [address] 25y, F Registration Date/Time: 03/29/2016 Weight: 63.5 kg Height/Length: 62 in. BMI: 25.6 ALLERGIES: No Known Drug Allergy The patient's Home Medications are listed below: CONTINUE TAKING THE FOLLOWING MEDICATIONS: Vitamins Oral The source(s) of the original Home Medication information: patient The following Medications were given to the patient in the Emergency Department: None. The following Medications were prescribed to the patient: Fluticasone nasal spray: 2 sprays to each nostril daily for allergies or congestion. Dispense one (1) unit. No refills. -- Husam Lopez Dr.
--- NOTE | 2016-03-29 05:16 | ED MED RECONCILIATION SUMMARY ---
Patient: DANIELLE CERVANTES Medication Reconciliation Report [facility] VisitID: [id number] [address] [place] [address] 25y, F Registration Date/Time: 03/29/2016 Weight: 63.5 kg Height/Length: 62 in. BMI: 25.6 ALLERGIES: No Known Drug Allergy The patient's Home Medications are listed below: CONTINUE TAKING THE FOLLOWING MEDICATIONS: Vitamins Oral The source(s) of the original Home Medication information: patient The following Medications were given to the patient in the Emergency Department: None. The following Medications were prescribed to the patient: Fluticasone nasal spray: 2 sprays to each nostril daily for allergies or congestion. Dispense one (1) unit. No refills. -- Husam Lopez Dr.
--- NOTE | 2016-03-29 05:16 | ED DISCHARGE INSTRUCTIONS ---
Patient: DANIELLE CERVANTES General Instructions [facility] VisitID: [id number] [place] [address] 25y, F Registration Date/Time: 03/29/2016 Acute viral rhinitis and sinusitis. INSTRUCTIONS Do not work today, tomorrow. Drink plenty of fluids. Your Current Medications: CONTINUE TAKING THE FOLLOWING MEDICATIONS: Vitamins Oral. Prescription Medications: Fluticasone nasal spray: 2 sprays to each nostril daily for allergies or congestion. Dispense one (1) unit. No refills. Follow-up: Follow up with your doctor in about two days. Call for an appointment. Screening today revealed the patient's blood pressure to be in the normal range. ADDITIONAL INFORMATION Viral Respiratory Illness [Adult] You have an Upper Respiratory Illness (URI) caused by a virus. This illness is contagious during the first few days. It is spread through the air by coughing and sneezing or by direct contact (touching the sick person and then touching your own eyes, nose or mouth). Most viral illnesses go away within 7-10 days with rest and simple home remedies. Sometimes, the illness may last for several weeks. Antibiotics will not kill a virus and are generally not prescribed for this condition. Home Care: 1) If symptoms are severe, rest at home for the first 2-3 days. When you resume activity, don't let yourself get too tired. 2) Avoid being exposed to cigarette smoke (yours or others). 3) Tylenol (acetaminophen) or ibuprofen (Advil, Motrin) will help fever, muscle aching and headache. (Persons under 18 with fever should not take aspirin since this may cause liver damage.) 4) Your appetite may be poor, so a light diet is fine. Avoid dehydration by drinking 6-8 glasses of fluids per day (water, soft drinks, juices, tea, soup). Extra fluids will help loosen secretions in the nose and lungs. 5) Knkv-wre-oycufld cold medicines will not shorten the length of time youre sick, but they may be helpful for the following symptoms: cough (Robitussin DM); sore throat (Chloraseptic lozenges or spray); nasal and sinus congestion (Actifed, Sudafed, Chlortrimeton). Follow Up with your doctor or as advised if you dont improve over the next week. Get Prompt Medical Attention if any of the following occur: -- Cough with lots of colored sputum (mucus) or blood in your sputum -- Chest pain, shortness of breath, wheezing or have trouble breathing -- Severe headache; face, neck or ear pain -- Fever over 100.4 F (38.0 C) for more than three days -- You cant swallow due to throat pain Fluticasone Propionate Nasal spray, solution What is this medicine? FLUTICASONE (floo TIK a sone) is a corticosteroid. It helps decrease inflammation in your nose. This medicine is used to treat the symptoms of allergies like sneezing, itching, and runny or stuffy nose. How should I use this medicine? This medicine is for use in the nose. Follow the directions on your prescription label. This medicine works best if used regularly. Do not use more often than directed. Make sure that you are using your nasal spray correctly. Ask you doctor or health care provider if you have any questions. Talk to your va underwriter regarding the use of this medicine in children. While this drug may be prescribed for children as young as 4 years old for selected conditions, precautions do apply. What side effects may I notice from receiving this medicine? Side effects that you should report to your doctor or health director critical care as soon as possible: allergic reactions like skin rash, itching or hives, swelling of the face, lips, or tongue changes in vision flu-like symptoms white patches or sores in the mouth or nose Side effects that usually do not require medical attention (report to your doctor or health director critical care if they continue or are bothersome): burning or irritation inside the nose or throat cough headache nosebleed unusual taste or smell What may interact with this medicine? ketoconazole metyrapone some medicines for HIV vaccines What if I miss a dose? If you miss a dose, use it as soon as you remember. If it is almost time for your next dose, use only that dose and continue with your regular schedule. Do not use double or extra doses. Where should I keep my medicine? Keep out of the reach of children. Store at room temperature between 15 and 30 degrees C (59 and 86 degrees F). Throw away any unused medicine after the expiration date. What should I tell my health care provider before I take this medicine? They need to know if you have any of these conditions: infection, like tuberculosis, herpes, or fungal infection recent surgery on nose or sinuses taking corticosteroid by mouth an unusual or allergic reaction to fluticasone, steroids, other medicines, foods, dyes, or preservatives or trying to get breast-feeding What should I watch for while using this medicine? Visit your doctor or health director critical care for regular checks on your progress. Some symptoms may improve within 12 hours after starting use. Check with your doctor or health director critical care if there is no improvement in your condition after 3 weeks of use. Do not come in contact with people who have chickenpox or the measles while you are taking this medicine. If you do, call your doctor right away. You have been given the following additional information: Uri, Viral, No Abx (Adult) Fluticasone Propionate Nasal spray, solution Do not work today, tomorrow. (Electronically signed by Husam Lopez Dr. 03/29/2016 5:11)
== END 2016-03-29 05:15 | disposition home or self-care (01) ==
LOC: ED SRH 04:19
DX: J01.90 Acute sinusitis, unspecified (principal); J00 Acute nasopharyngitis [common cold]

== ENCOUNTER 2016-05-29 02:27 | Emergency (ER) | payer OTHER ==
--- NOTE | 2016-05-29 02:53 | ED NURSING NOTES ---
Clinical Report - Nurses [facility] [address] [place] [address] 05/29/2016 2:26 Patient: DANIELLE CERVANTES TRIAGE Triage time 02:May 29 2016. Acuity: LEVEL 4. Chief Complaint: (vomiting). 02:35 05/29/16. SEPSIS SCREEN: Sepsis Screen. Negative (no infection suspected/documented). ALON COMA SCORE: Alon Coma Scale: 15- eyes open spontaneously (4); best verbal response- oriented x 4 (5); best motor response- obeys commands (6). --02:35 Saranya Washington R.N. 02:35 05/29/16. BP: 104/39. HR: 68. RR: 18. O2 saturation: 100%. Temp: 98.3 F. Pain level now 0/10. --02:35 Saranya Washington R.N. Weight: 68 kg. Height/Length: 62 inches. BMI: 27.4. --02:30 Saranya Washington R.N. Medications Vitamins Oral. --02:31 Saranya Washington R.N. Medication/allergy information source: the patient. --02:35 Saranya Washington R.N. Allergies No Known Drug Allergy. --02:31 Saranya Washington R.N. History Arrived by private vehicle. Historian: patient. Accompanied by family. ( 31 wks , vomiting. denies pain, cramping bleeding or any vaginal discharge. Vomiting all day today. She does report cough.). No fever, weakness, cough, difficulty breathing or skin rash. Denies muscle aches. Treatment POST OFFICE CLERK: None. PAST MEDICAL HX: Currently : EDC: 07/28. In 3rd trimester. Recent sonogram showed viable intrauterine . G 2. P 1. SOCIAL HX: Never smoker. No alcohol use or drug use. No infectious disease exposure. ABUSE ASSESSMENT: No report of abuse. NUTRITIONAL RISK ASSESSMENT: The nutritional risk assessment revealed no deficiencies. FUNCTIONAL ASSESSMENT: Functional assessment: no impairments noted. LEARNING NEEDS ASSESSMENT: The learning needs assessment revealed no barriers. SKIN INTEGRITY ASSESSMENT: Skin integrity risk assessment completed. No skin integrity risk identified. --02:35 Saranya Washington R.N. PROBLEMS: Intrauterine . --02:32 Saranya Washington R.N. ADDITIONAL SURGERIES: no known surgeries. Interventions ID band on patient. --02:35 Saranya Washington R.N. PHYSICAL ASSESSMENT 02:39 05/29/16. Ambulatory to room. GENERAL / NEURO / PSYCH: Alert. Oriented X 4. HEENT: No facial asymmetry noted. Mucous membranes are pink. RESPIRATORY: Respirations not labored. Breath sounds within normal limits. CVS: Capillary refill less than 2 seconds. Pulses within normal limits. GI / : Abdomen soft and nontender and normal bowel sounds. SKIN: Skin intact. Skin is warm and dry. Normal skin turgor. --02:39 Saranya Washington R.N. NURSING PROGRESS NOTES 02:37 05/29/16. The initial plan of care for this patient includes an assessment with efforts to address hydration needs. This plan of care was discussed with the patient. Reassurance given. Patient identifiers checked. Call light placed in reach. Side rails up x 1. Bed placed in lowest position. ( heart rate 124 found left of umbilicus). --02:37 Saranya Washington R.N. DISPOSITION / DISCHARGE 03:03 05/29/16. Condition at departure: improved and stable. The goals identified in the patient's plan of care were met. No learning barriers present. Discharge instructions provided and reviewed with the patient. Reviewed medication(s) side effects, precautions, dosing and course information. Prescription(s) given to the patient. Reviewed referral to a primary care physician for followup. Summary of care provided to patient via paper. Patient verbalized understanding. Written instructions provided in Slovenian. The patient was discharged home and accompanied by family. She left the Emergency Department ambulatory and via private vehicle. Patient driving. --03:03 Saranya Washington R.N. 02:30 05/29/16. BP: 104/39. HR: 68. RR: 18. O2 saturation: 100%. Temp: 98.3 F. Pain level now 0/10. --03:03 Saranya Washington R.N. 03:03 05/29/16. Departure time: 03:May 29 2016. --03:03 Saranya Washington R.N. Locked/Released at 05/29/2016 5:03 by Saranya Washington R.N.
--- NOTE | 2016-05-29 02:53 | ED CLINICAL REPORT ---
Clinical Report - Physicians/Mid Levels [facility] [address] [place] [address] 05/29/2016 2:26 Patient: DANIELLE CERVANTES Time Seen: 0239; initial patient contact. Arrived- By private vehicle. Historian- patient. HISTORY OF PRESENT ILLNESS Chief Complaint: COUGH. This started about 3 weeks ago and is still present (persistent). It was gradual in onset. The illness is described as mild. The patient has had a cough, nasal congestion, sinus drainage and a nasal discharge. No sputum production, difficulty breathing, chest discomfort or pain or fever. No chills, sore throat, sinus pressure or ear pain. Additional history - The patient has had contact with a sick individual. (Has not been using her Flonase regullarly). Similar symptoms previously: Many times. Recent medical care: Not recently seen/assessed. REVIEW OF SYSTEMS No headache, nausea, diarrhea, abdominal pain or pedal edema. No calf pain. She has had mild vomiting. The vomiting was post-tussive. All systems otherwise negative, except as recorded above. PAST HISTORY IUP(current). Surgeries: No history of previous surgery. Additional Surgeries: no known surgeries. Medications: Vitamins Oral. Allergies: No Known Drug Allergy. SOCIAL HISTORY Never smoker. Not exposed to second-hand smoke at home. No alcohol use or drug use. ADDITIONAL NOTES The nursing notes have been reviewed. PHYSICAL EXAM Vital Signs: 05/29/2016 02:35 BP: 104/39. HR: 68. RR: 18. O2 saturation: 100%. Temp: 98.3 F. Have been reviewed and do not appear to be correct. Appearance: Alert. No acute distress. Head: No tenderness to palpation/percussion over the sinuses. Eyes: Eyes normal inspection. No conjunctival findings. ENT: Ears normal. Pharynx normal. The mucous membranes are not dry. Neck: Normal inspection. No lymphadenopathy. CVS: Normal heart rate and rhythm. Heart sounds normal. Respiratory: No respiratory distress. Breath sounds normal. Skin: Normal skin color. No rash. Neuro: Oriented X 3. PROGRESS AND PROCEDURES Disposition: Discharged home in good condition. Condition: good. CLINICAL IMPRESSION Chronic maxillary, ethmoidal and sphenoidal sinusitis INSTRUCTIONS Your Current Medications: CONTINUE TAKING THE FOLLOWING MEDICATIONS: Vitamins Oral. Prescription Medications: Fluticasone nasal spray: 2 sprays to each nostril daily. Dispense one (1) unit. No refills. Follow-up: Follow up with your doctor in about two days. Call for an appointment. Screening today revealed the patient's blood pressure to be in the normal range. (Electronically signed by Husam Lopez Dr. 05/29/2016 2:55)
--- NOTE | 2016-05-29 02:53 | ED CLINICAL REPORT ---
Clinical Report - Physicians/Mid Levels [facility] [address] [place] [address] 05/29/2016 2:26 Patient: DANIELLE CERVANETS Time Seen: 0239; initial patient contact. Arrived- By private vehicle. Historian- patient. HISTORY OF PRESENT ILLNESS Chief Complaint: COUGH. This started about 3 weeks ago and is still present (persistent). It was gradual in onset. The illness is described as mild. The patient has had a cough, nasal congestion, sinus drainage and a nasal discharge. No sputum production, difficulty breathing, chest discomfort or pain or fever. No chills, sore throat, sinus pressure or ear pain. Additional history - The patient has had contact with a sick individual. (Has not been using her Flonase regullarly). Similar symptoms previously: Many times. Recent medical care: Not recently seen/assessed. REVIEW OF SYSTEMS No headache, nausea, diarrhea, abdominal pain or pedal edema. No calf pain. She has had mild vomiting. The vomiting was post-tussive. All systems otherwise negative, except as recorded above. PAST HISTORY IUP(current). Surgeries: No history of previous surgery. Additional Surgeries: no known surgeries. Medications: Vitamins Oral. Allergies: No Known Drug Allergy. SOCIAL HISTORY Never smoker. Not exposed to second-hand smoke at home. No alcohol use or drug use. ADDITIONAL NOTES The nursing notes have been reviewed. PHYSICAL EXAM Vital Signs: 05/29/2016 02:35 BP: 104/39. HR: 68. RR: 18. O2 saturation: 100%. Temp: 98.3 F. Have been reviewed and do not appear to be correct. Appearance: Alert. No acute distress. Head: No tenderness to palpation/percussion over the sinuses. Eyes: Eyes normal inspection. No conjunctival findings. ENT: Ears normal. Pharynx normal. The mucous membranes are not dry. Neck: Normal inspection. No lymphadenopathy. CVS: Normal heart rate and rhythm. Heart sounds normal. Respiratory: No respiratory distress. Breath sounds normal. Skin: Normal skin color. No rash. Neuro: Oriented X 3. PROGRESS AND PROCEDURES Disposition: Discharged home in good condition. Condition: good. CLINICAL IMPRESSION Chronic maxillary, ethmoidal and sphenoidal sinusitis INSTRUCTIONS Your Current Medications: CONTINUE TAKING THE FOLLOWING MEDICATIONS: Vitamins Oral. Prescription Medications: Fluticasone nasal spray: 2 sprays to each nostril daily. Dispense one (1) unit. No refills. Follow-up: Follow up with your doctor in about two days. Call for an appointment. Screening today revealed the patient's blood pressure to be in the normal range. (Electronically signed by Husam Lopez Dr. 05/29/2016 2:55)
--- NOTE | 2016-05-29 02:53 | ED NURSING NOTES ---
Clinical Report - Nurses [facility] [address] [place] [address] 05/29/2016 2:26 Patient: DANIELLE CERVANETS TRIAGE Triage time 02:May 29 2016. Acuity: LEVEL 4. Chief Complaint: (vomiting). 02:35 05/29/16. SEPSIS SCREEN: Sepsis Screen. Negative (no infection suspected/documented). ALON COMA SCORE: Alon Coma Scale: 15- eyes open spontaneously (4); best verbal response- oriented x 4 (5); best motor response- obeys commands (6). --02:35 Saranya Washington R.N. 02:35 05/29/16. BP: 104/39. HR: 68. RR: 18. O2 saturation: 100%. Temp: 98.3 F. Pain level now 0/10. --02:35 Saranya Washington R.N. Weight: 68 kg. Height/Length: 62 inches. BMI: 27.4. --02:30 Saranya Washington R.N. Medications Vitamins Oral. --02:31 Saranya Washington R.N. Medication/allergy information source: the patient. --02:35 Saranya Washington R.N. Allergies No Known Drug Allergy. --02:31 Saranya Washington R.N. History Arrived by private vehicle. Historian: patient. Accompanied by family. ( 31 wks , vomiting. denies pain, cramping bleeding or any vaginal discharge. Vomiting all day today. She does report cough.). No fever, weakness, cough, difficulty breathing or skin rash. Denies muscle aches. Treatment BUTTON CLAMPER: None. PAST MEDICAL HX: Currently : EDC: 07/28. In 3rd trimester. Recent sonogram showed viable intrauterine . G 2. P 1. SOCIAL HX: Never smoker. No alcohol use or drug use. No infectious disease exposure. ABUSE ASSESSMENT: No report of abuse. NUTRITIONAL RISK ASSESSMENT: The nutritional risk assessment revealed no deficiencies. FUNCTIONAL ASSESSMENT: Functional assessment: no impairments noted. LEARNING NEEDS ASSESSMENT: The learning needs assessment revealed no barriers. SKIN INTEGRITY ASSESSMENT: Skin integrity risk assessment completed. No skin integrity risk identified. --02:35 Saranya Washington R.N. PROBLEMS: Intrauterine . --02:32 Saranya Washington R.N. ADDITIONAL SURGERIES: no known surgeries. Interventions ID band on patient. --02:35 Saranya Washington R.N. PHYSICAL ASSESSMENT 02:39 05/29/16. Ambulatory to room. GENERAL / NEURO / PSYCH: Alert. Oriented X 4. HEENT: No facial asymmetry noted. Mucous membranes are pink. RESPIRATORY: Respirations not labored. Breath sounds within normal limits. CVS: Capillary refill less than 2 seconds. Pulses within normal limits. GI / : Abdomen soft and nontender and normal bowel sounds. SKIN: Skin intact. Skin is warm and dry. Normal skin turgor. --02:39 Saranya Washington R.N. NURSING PROGRESS NOTES 02:37 05/29/16. The initial plan of care for this patient includes an assessment with efforts to address hydration needs. This plan of care was discussed with the patient. Reassurance given. Patient identifiers checked. Call light placed in reach. Side rails up x 1. Bed placed in lowest position. ( heart rate 124 found left of umbilicus). --02:37 Saranya Washington R.N. DISPOSITION / DISCHARGE 03:03 05/29/16. Condition at departure: improved and stable. The goals identified in the patient's plan of care were met. No learning barriers present. Discharge instructions provided and reviewed with the patient. Reviewed medication(s) side effects, precautions, dosing and course information. Prescription(s) given to the patient. Reviewed referral to a primary care physician for followup. Summary of care provided to patient via paper. Patient verbalized understanding. Written instructions provided in Bengali. The patient was discharged home and accompanied by family. She left the Emergency Department ambulatory and via private vehicle. Patient driving. --03:03 Saranya Washington R.N. 02:30 05/29/16. BP: 104/39. HR: 68. RR: 18. O2 saturation: 100%. Temp: 98.3 F. Pain level now 0/10. --03:03 Saranya Washington R.N. 03:03 05/29/16. Departure time: 03:May 29 2016. --03:03 Saranya Washington R.N. Locked/Released at 05/29/2016 5:03 by Saranya Washington R.N.
--- NOTE | 2016-05-29 05:03 | ED MAR SUMMARY ---
..... Medication Administration Record [facility] [address] [place], [place] [id number] Patient: DANIELLE CERVANTES Visit ID: [id number] 26y, F Weight: 68.0 kg Height/Length: 62 in BMI: 27.4 ALLERGIES: No Known Drug Allergy
--- NOTE | 2016-05-29 05:03 | ED DISCHARGE INSTRUCTIONS ---
Patient: DANIELLE CERVANTES General Instructions [facility] VisitID: [id number] [place] [address] 26y, F Registration Date/Time: 05/29/2016 Chronic maxillary, ethmoidal and sphenoidal sinusitis INSTRUCTIONS Your Current Medications: CONTINUE TAKING THE FOLLOWING MEDICATIONS: Vitamins Oral. Prescription Medications: Fluticasone nasal spray: 2 sprays to each nostril daily. Dispense one (1) unit. No refills. Follow-up: Follow up with your doctor in about two days. Call for an appointment. Screening today revealed the patient's blood pressure to be in the normal range. ADDITIONAL INFORMATION Sinusitis [No Abx Tx] The sinuses are air-filled spaces within the bones of the face. They connect to the inside of the nose. Sinusitis is an inflammation of the tissue lining the sinus cavity. Sinus inflammation can occur during a cold or hay-fever (allergies to pollens and other particles in the air) and cause symptoms of sinus congestion and fullness and perhaps a low-grade fever. This does not require antibiotic treatment. Home Care: Drink plenty of water, hot tea, and other liquids to stay well hydrated. This thins the mucus and promotes sinus drainage. Apply heat to the painful areas of the face. Use a towel soaked in hot water. Or, transmission maintenance supervisor the shower and direct the hot spray onto your face. This is a good way to inhale warm water vapor and get heat on your face at the same time. (Cover your mouth and nose with your hands so you can still breathe as you do this.) Use a vaporizer with products such as Conergy VapoRub (contains menthol) at night. Suck on peppermint, menthol or eucalyptus hard candies during the day. An expectorant containing guaifenesin (such as Robitussin), helps to thin the mucus and promote drainage from the sinuses. [id number] decongestants may be used unless a similar medicine was prescribed. Nasal sprays work the fastest. Use one that contains phenylephrine (Albert-synephrine, Sinex and others) or oxymetazoline (Afrin). First blow the nose gently to remove mucus, then apply the drops. Do not use these medicines more often than directed on the label or for more than three days or symptoms may worsen. You may also use tablets containing pseudoephedrine (Sudafed). Many sinus remedies combine ingredients, which may increase side effects. Read the labels or ask the pharmacist for help. NOTE: Persons with high blood pressure should not use decongestants. They can raise blood pressure. Antihistamines are useful if allergies are a cause of your sinusitis. The mildest one is chlorpheniramine (available without a prescription). The dose for adults is 8-12mg three times a day. [NOTE: Do not use chlorpheniramine if you have glaucoma or if you are a man with trouble urinating due to an enlarged prostate.] Claritin (loratidine) is an antihistamine that causes less drowsiness and is a good alternative for daytime use. When allergies are the cause for sinusitis, a saline nasal rinse may give relief. Saline nasal rinse reduces swelling and clears excess mucus. This allows sinuses to drain. Pre-packaged kits are available at most drug stores. These contain pre-mixed salt packets and an irrigation device. You may use acetaminophen (Tylenol) or ibuprofen (Motrin, Advil) to control pain, unless another pain medicine was prescribed. [ NOTE: If you have chronic liver or kidney disease or ever had a stomach ulcer, talk with your doctor before using these medicines.] (Aspirin should never be used in anyone under 18 years of age who is ill with a fever. It may cause severe liver damage.) Follow Up with your doctor or this facility in one week or as instructed by our staff if not improving. Get Prompt Medical Attention if any of the following occur: Green or yellow drainage from the nose or into the back of the throat (post-nasal drip) Worsening sinus pain or headache Stiff neck Unusual drowsiness, confusion or not acting like your normal self Swelling of the forehead or eyelids Vision problems including blurred or double vision Fever of 100.4F (38C) or higher, or as directed by your healthcare provider Seizure Fluticasone Propionate Nasal spray, solution What is this medicine? FLUTICASONE (floo TIK a sone) is a corticosteroid. It helps decrease inflammation in your nose. This medicine is used to treat the symptoms of allergies like sneezing, itching, and runny or stuffy nose. How should I use this medicine? This medicine is for use in the nose. Follow the directions on your prescription label. This medicine works best if used regularly. Do not use more often than directed. Make sure that you are using your nasal spray correctly. Ask you doctor or health care provider if you have any questions. Talk to your dean of chapel regarding the use of this medicine in children. While this drug may be prescribed for children as young as 4 years old for selected conditions, precautions do apply. What side effects may I notice from receiving this medicine? Side effects that you should report to your doctor or health district manager primary care sales as soon as possible: allergic reactions like skin rash, itching or hives, swelling of the face, lips, or tongue changes in vision flu-like symptoms white patches or sores in the mouth or nose Side effects that usually do not require medical attention (report to your doctor or health district manager primary care sales if they continue or are bothersome): burning or irritation inside the nose or throat cough headache nosebleed unusual taste or smell What may interact with this medicine? ketoconazole metyrapone some medicines for HIV vaccines What if I miss a dose? If you miss a dose, use it as soon as you remember. If it is almost time for your next dose, use only that dose and continue with your regular schedule. Do not use double or extra doses. Where should I keep my medicine? Keep out of the reach of children. Store at room temperature between 15 and 30 degrees C (59 and 86 degrees F). Throw away any unused medicine after the expiration date. What should I tell my health care provider before I take this medicine? They need to know if you have any of these conditions: infection, like tuberculosis, herpes, or fungal infection recent surgery on nose or sinuses taking corticosteroid by mouth an unusual or allergic reaction to fluticasone, steroids, other medicines, foods, dyes, or preservatives or trying to get breast-feeding What should I watch for while using this medicine? Visit your doctor or health district manager primary care sales for regular checks on your progress. Some symptoms may improve within 12 hours after starting use. Check with your doctor or health district manager primary care sales if there is no improvement in your condition after 3 weeks of use. Do not come in contact with people who have chickenpox or the measles while you are taking this medicine. If you do, call your doctor right away. You have been given the following additional information: Sinusitis, No Abx Fluticasone Propionate Nasal spray, solution (Electronically signed by Husam Lopez Dr. 05/29/2016 2:55)
--- NOTE | 2016-05-29 05:03 | ED DISCHARGE INSTRUCTIONS ---
Patient: DANIELLE CERVANTES General Instructions [facility] VisitID: [id number] [place] [address] 26y, F Registration Date/Time: 05/29/2016 Chronic maxillary, ethmoidal and sphenoidal sinusitis INSTRUCTIONS Your Current Medications: CONTINUE TAKING THE FOLLOWING MEDICATIONS: Vitamins Oral. Prescription Medications: Fluticasone nasal spray: 2 sprays to each nostril daily. Dispense one (1) unit. No refills. Follow-up: Follow up with your doctor in about two days. Call for an appointment. Screening today revealed the patient's blood pressure to be in the normal range. ADDITIONAL INFORMATION Sinusitis [No Abx Tx] The sinuses are air-filled spaces within the bones of the face. They connect to the inside of the nose. Sinusitis is an inflammation of the tissue lining the sinus cavity. Sinus inflammation can occur during a cold or hay-fever (allergies to pollens and other particles in the air) and cause symptoms of sinus congestion and fullness and perhaps a low-grade fever. This does not require antibiotic treatment. Home Care: Drink plenty of water, hot tea, and other liquids to stay well hydrated. This thins the mucus and promotes sinus drainage. Apply heat to the painful areas of the face. Use a towel soaked in hot water. Or, siding stapler the shower and direct the hot spray onto your face. This is a good way to inhale warm water vapor and get heat on your face at the same time. (Cover your mouth and nose with your hands so you can still breathe as you do this.) Use a vaporizer with products such as Num[place]on VapoRub (contains menthol) at night. Suck on peppermint, menthol or eucalyptus hard candies during the day. An expectorant containing guaifenesin (such as Robitussin), helps to thin the mucus and promote drainage from the sinuses. [id number]-[id number] decongestants may be used unless a similar medicine was prescribed. Nasal sprays work the fastest. Use one that contains phenylephrine (Albert-synephrine, Sinex and others) or oxymetazoline (Afrin). First blow the nose gently to remove mucus, then apply the drops. Do not use these medicines more often than directed on the label or for more than three days or symptoms may worsen. You may also use tablets containing pseudoephedrine (Sudafed). Many sinus remedies combine ingredients, which may increase side effects. Read the labels or ask the pharmacist for help. NOTE: Persons with high blood pressure should not use decongestants. They can raise blood pressure. Antihistamines are useful if allergies are a cause of your sinusitis. The mildest one is chlorpheniramine (available without a prescription). The dose for adults is 8-12mg three times a day. [NOTE: Do not use chlorpheniramine if you have glaucoma or if you are a man with trouble urinating due to an enlarged prostate.] Claritin (loratidine) is an antihistamine that causes less drowsiness and is a good alternative for daytime use. When allergies are the cause for sinusitis, a saline nasal rinse may give relief. Saline nasal rinse reduces swelling and clears excess mucus. This allows sinuses to drain. Pre-packaged kits are available at most drug stores. These contain pre-mixed salt packets and an irrigation device. You may use acetaminophen (Tylenol) or ibuprofen (Motrin, Advil) to control pain, unless another pain medicine was prescribed. [ NOTE: If you have chronic liver or kidney disease or ever had a stomach ulcer, talk with your doctor before using these medicines.] (Aspirin should never be used in anyone under 18 years of age who is ill with a fever. It may cause severe liver damage.) Follow Up with your doctor or this facility in one week or as instructed by our staff if not improving. Get Prompt Medical Attention if any of the following occur: Green or yellow drainage from the nose or into the back of the throat (post-nasal drip) Worsening sinus pain or headache Stiff neck Unusual drowsiness, confusion or not acting like your normal self Swelling of the forehead or eyelids Vision problems including blurred or double vision Fever of 100.4F (38C) or higher, or as directed by your healthcare provider Seizure Fluticasone Propionate Nasal spray, solution What is this medicine? FLUTICASONE (floo TIK a sone) is a corticosteroid. It helps decrease inflammation in your nose. This medicine is used to treat the symptoms of allergies like sneezing, itching, and runny or stuffy nose. How should I use this medicine? This medicine is for use in the nose. Follow the directions on your prescription label. This medicine works best if used regularly. Do not use more often than directed. Make sure that you are using your nasal spray correctly. Ask you doctor or health care provider if you have any questions. Talk to your split leather department supervisor regarding the use of this medicine in children. While this drug may be prescribed for children as young as 4 years old for selected conditions, precautions do apply. What side effects may I notice from receiving this medicine? Side effects that you should report to your doctor or health rn home care as soon as possible: allergic reactions like skin rash, itching or hives, swelling of the face, lips, or tongue changes in vision flu-like symptoms white patches or sores in the mouth or nose Side effects that usually do not require medical attention (report to your doctor or health rn home care if they continue or are bothersome): burning or irritation inside the nose or throat cough headache nosebleed unusual taste or smell What may interact with this medicine? ketoconazole metyrapone some medicines for HIV vaccines What if I miss a dose? If you miss a dose, use it as soon as you remember. If it is almost time for your next dose, use only that dose and continue with your regular schedule. Do not use double or extra doses. Where should I keep my medicine? Keep out of the reach of children. Store at room temperature between 15 and 30 degrees C (59 and 86 degrees F). Throw away any unused medicine after the expiration date. What should I tell my health care provider before I take this medicine? They need to know if you have any of these conditions: infection, like tuberculosis, herpes, or fungal infection recent surgery on nose or sinuses taking corticosteroid by mouth an unusual or allergic reaction to fluticasone, steroids, other medicines, foods, dyes, or preservatives or trying to get breast-feeding What should I watch for while using this medicine? Visit your doctor or health rn home care for regular checks on your progress. Some symptoms may improve within 12 hours after starting use. Check with your doctor or health rn home care if there is no improvement in your condition after 3 weeks of use. Do not come in contact with people who have chickenpox or the measles while you are taking this medicine. If you do, call your doctor right away. You have been given the following additional information: Sinusitis, No Abx Fluticasone Propionate Nasal spray, solution (Electronically signed by Husam Lopez Dr. 05/29/2016 2:55)
--- NOTE | 2016-05-29 05:03 | ED MAR SUMMARY ---
..... Medication Administration Record [facility] [address] [place], [place] [id number] Patient: DANIELLE CERVANTES Visit ID: [id number] 26y, F Weight: 68.0 kg Height/Length: 62 in BMI: 27.4 ALLERGIES: No Known Drug Allergy
--- NOTE | 2016-05-29 05:03 | ED MED RECONCILIATION SUMMARY ---
Patient: DANIELLE CERVANTES Medication Reconciliation Report [facility] VisitID: [id number] [place] [address] 26y, F Registration Date/Time: 05/29/2016 Weight: 68.0 kg Height/Length: 62 in. BMI: 27.4 ALLERGIES: No Known Drug Allergy The patient's Home Medications are listed below: CONTINUE TAKING THE FOLLOWING MEDICATIONS: Vitamins Oral The source(s) of the original Home Medication information: patient The following Medications were given to the patient in the Emergency Department: None. The following Medications were prescribed to the patient: Fluticasone nasal spray: 2 sprays to each nostril daily. Dispense one (1) unit. No refills. -- Husam Lopez Dr.
--- NOTE | 2016-05-29 05:03 | ED MED RECONCILIATION SUMMARY ---
Patient: DANIELLE CERVANTES Medication Reconciliation Report [facility] VisitID: [id number] [place] [address] 26y, F Registration Date/Time: 05/29/2016 Weight: 68.0 kg Height/Length: 62 in. BMI: 27.4 ALLERGIES: No Known Drug Allergy The patient's Home Medications are listed below: CONTINUE TAKING THE FOLLOWING MEDICATIONS: Vitamins Oral The source(s) of the original Home Medication information: patient The following Medications were given to the patient in the Emergency Department: None. The following Medications were prescribed to the patient: Fluticasone nasal spray: 2 sprays to each nostril daily. Dispense one (1) unit. No refills. -- Husam Lopez Dr.
== END 2016-05-29 03:03 | disposition home or self-care (01) ==
LOC: ED SRH 02:27
DX: J32.0 Chronic maxillary sinusitis (principal); J32.2 Chronic ethmoidal sinusitis; J32.3 Chronic sphenoidal sinusitis

== ENCOUNTER 2016-07-24 03:27 | Outpatient (CLI) | payer OTHER | END 2016-07-24 05:30 | disposition home or self-care (01) | LOC: OBC SRH 03:27 → OB SRH 03:27 → OBC SRH 05:30 | PROC: 4A0HXCZ Measurement of Products of Conception, Cardiac Rate, External Approach (ICD-10-PCS; principal; 2016-07-24) | DX: O47.1 False labor at or after 37 completed weeks of gestation (principal); Z3A.39 39 weeks gestation of pregnancy ==

== ENCOUNTER 2016-08-02 20:13 | Inpatient (IN) | payer OTHER ==
[~2016-08-02] VITALS: Ht 157.5 cm; Wt 76.7 kg
[2016-08-02 23:40] VITALS: BP 121/56
[2016-08-03] VITALS (8 sets, daily range): BP systolic 105–146; BP diastolic 55–75
--- NOTE | 2016-08-03 06:34 | Progress Note ---
Subjective General Patient has been doing well. 3-4 cm dilated soft cervix,-2 head applied to cervix now. light meconium with SROM yesterday. Now s/p epidural. FHT: 125 mod variability, no decels Will have patient watch on labor and likely augmentation with pitosin this am.
--- NOTE | 2016-08-03 19:14 | Progress Note ---
Subjective General Patient is doing well at this itme. Overall is comfortable feels like she has a plantain in her butt. Has been wtih slow progress on 2 units pitosin. No sig concerns per nursing. Low grade temp 99.4 oral. Max 100.1 axillary. Physical Exam Vital Signs / I&Os Vital Signs Date Time Temp Pulse Resp B/P Pulse O2 O2 Flow FiO2 Ox Delivery Rate 08/02 2340 98.2 71 18 121/56 Room Air I&O 08/03 0000 08/02 1600 08/02 0800 Intake Total Output Total Balance Other FHT 145 no sig decels with ok variability at this time. VE per nursing 9+cm/-2/100% Assessment and Plan Problem List 1. Plan Post dates induction and doing ok slow progress. FHT adequate and continue to monitor.
--- NOTE | 2016-08-03 21:14 | Progress Note ---
Subjective General full note dictated: OA position velamentous nuchal cord that ruputed and then baby delivered to abdomen; manual extraction placenta to pathology; Mom baby well post apgars 9,9
--- NOTE | 2016-08-03 21:57 | DELIVERY SUMMARY ---
DELIVERY DATE: 08/03/2016 ATTENDING PHYSICIAN/PROVIDER: Paul Fallon MD PREOPERATIVE DIAGNOSES: 1. Intrauterine 2. Postdates 3. Induction POSTOPERATIVE DIAGNOSES: 1. Intrauterine 2. Postdates 3. Induction 4. Viable baby girl PROCEDURE PERFORMED: 1. Manual extraction of placenta 2. Normal spontaneous vaginal delivery FINDINGS: Nuchal cord x1, a velamentous insertion, spontaneously ruptured. SURGICAL TECHNIQUE: The patient is a 26-year-old female, G2, P1, who presented to labor and delivery for postdates induction. She had Cytotec and then converted to Pitocin. She slowly progressed through labor to complete and then had a baby occipital anterior position. There was a nuchal cord x1 that was fairly loose and reducing the nuchal cord with light traction around the head there was spontaneous rupture of the cord. Baby was delivered with 1 push. At this time, cord was clamped and then baby delivered up to maternal abdomen with movement and cry with light stimulus, that it was also showing movement and starting crying without any. There was light meconium noted previously, though no significant meconium at time of delivery noted. The placenta was then manually extracted without incident. The placenta was sent to pathology. There was no significant bleeding initially post-delivery, though if she starts bleeding we will likely treat with Cytotec. At this time, there is no evidence of bleeding. The mom and baby were doing well after delivery. There were no lacerations and the placenta was sent to pathology. Baby remained with mom and had Apgars of 9 and 9 with velamentous insertion. We will check on pathology on placenta. She also did have a low-grade temperature x1 less than 100.4 in labor. Baby is doing well. I do not think that it is likely to have any significant infection issues.
--- NOTE | 2016-08-04 07:50 | Progress Note ---
Subjective General Doing well no concerns per mom. Has some cramps with BF. No cp,sob. Physical Exam Vital Signs / I&Os Vital Signs Date Time Temp Pulse Resp B/P Pulse O2 O2 Flow FiO2 Ox Delivery Rate 08/030 Room Air 08/03 2329 98.1 72 18 105/55 08/03 2324 62 18 122/60 08/03 2239 71 18 116/55 08/03 2209 69 18 146/65 08/03 2154 67 18 126/58 08/03 2139 73 18 116/57 08/03 2124 86 18 126/59 08/03 2102 81 18 117/75 I&O 08/04 0000 08/03 1600 08/03 0800 Intake Total 400 Output Total 500 Balance -100 General Appearance Alert, No acute distress HEENT Normal exam Lungs Clear to auscultation, Normal air movement Cardiovascular Regular rate and rhythm, No murmurs, gallops, rubs Abdomen Soft, mild tenderness at uterus Extremities Normal exam LAB Results Microbiology Date/Time Procedure - Status Source Growth 08/05 127 Anaerobic Culture - COLB BODY FLUID 08/05 127 Body Fluid Culture - COLB BODY FLUID 08/05 127 Gram Stain - COLB BODY FLUID Assessment and Plan Problem List 1. Routine follow-up Plan Post doing well. Routine care. D/c tomorrow. Work on BF and watch for fevers post manual extraction placenta
[2016-08-04 08:00] VITALS: BP 112/72
[2016-08-04 13:12] VITALS: BP 113/55
[2016-08-04 15:55] VITALS: BP 116/64
[2016-08-05] VITALS: BP 108/59
[2016-08-05 00:09] VITALS: BP 105/59
[2016-08-05 03:59] VITALS: BP 113/61
[2016-08-05 08:00] VITALS: BP 117/68
--- NOTE | 2016-08-05 09:30 | Discharge Summary ---
Discharge Summary Report Admit Date 08/03/16 Discharge Date 08/05/16 Admission Diagnosis Induction post dates, Discharge Diagnosis same and Brief History 26 y.o female post dates for induction with cytotec then pitosin Hospital Course after cytotec, epidural, and pitosin. Doing well post . Refer to details of delivery per note. General Appearance Alert HEENT Atraumatic Lungs Clear to auscultation, Normal air movement Cardiovascular Regular Rate, No murmurs Abdomen Normal bowel sounds, Soft Skin No Rashes Discharge Instructions/Meds Patient is doing well post and d/c home routine care. Pain meds alon pack
--- NOTE | 2016-08-05 09:32 | Provider's Discharge Care Plan ---
Problem, Goal, Plan Problem List 1. Routine follow-up Instructions: Follow up as directed
--- NOTE | 2016-08-05 09:32 | Provider's Discharge Care Plan ---
Problem, Goal, Plan Problem List 1. Routine follow-up Instructions: Follow up as directed
--- NOTE | 2016-08-05 09:32 | Provider's Discharge Care Plan ---
Problem, Goal, Plan Problem List 1. Routine follow-up Instructions: Follow up as directed
--- NOTE | 2016-08-05 09:32 | Provider's Discharge Care Plan ---
Problem, Goal, Plan Problem List 1. Routine follow-up Instructions: Follow up as directed
== END 2016-08-05 11:00 | disposition home or self-care (01) | DRG 774 ==
LOC: OB SRH 20:13
PROVIDERS: ADMIT Family Medicine
PROC: 10E0XZZ Delivery of Products of Conception, External Approach (ICD-10-PCS; principal; 2016-08-03)
PROC: 3E033VJ Introduction of Other Hormone into Peripheral Vein, Percutaneous Approach (ICD-10-PCS; 2016-08-03)
DX: O48.0 Post-term pregnancy (principal); Z37.0 Single live birth; O75.2 Pyrexia during labor, not elsewhere classified; O69.81X0 Labor and delivery complicated by cord around neck, without compression, not applicable or unspecified; O43.123 Velamentous insertion of umbilical cord, third trimester; O77.0 Labor and delivery complicated by meconium in amniotic fluid; O99.824 Streptococcus B carrier state complicating childbirth; Z3A.40 40 weeks gestation of pregnancy
CPT/HCPCS: 40011; 40021; 83411; 83475; 90131; 90309; 90470; 95059